=== PATIENT | male | born 1930 | race Caucasian/White ===

== ENCOUNTER 2016-08-24 18:16 | Emergency (ER) | payer MEDICARE, OTHER ==
[~2016-08-24] VITALS: Ht 172.7 cm; Wt 63.5 kg
--- NOTE | 2016-08-24 18:19 | Emergency Room Report ---
History of Present Illness General Chief Complaint: Dyspnea/Respdistress Source: Patient, EMS Present Illness HPI Patient is a 81-year-old male who presented after having increased difficulty breathing. Patient had been sent in after chest x-ray was performed which showed a small pneumothorax. The patient presented for further evaluation and treatment. The patient had some difficulty breathing. Patient had a nonproductive cough. Patient for having had no recent surgical procedures.Patient denies any shortness of breath. Allergies: Coded Allergies: No Known Allergies (Unverified , 08/24/16) Patient History Past Medical History: see triage record Reviewed Nursing Documentation: PMH: Agreed, PSxH: Agreed Review of Systems All Other Systems: limited - by mental status and poor historian Physical Exam Vital Signs Date Time Temp Pulse Resp B/P Pulse Ox O2 Delivery O2 Flow Rate FiO2 08/24/16 18:10 97.2 89 20 156/64 94 Room Air Sp02 EP Interpretation: reviewed, normal General Appearance: normal inspection, well appearing, no apparent distress, alert, GCS 15, Chronically Ill Head: atraumatic ENT: normal ENT inspection, hearing grossly normal, normal voice, uvula midline Neck: normal inspection, full range of motion, supple, no bony tend, other - trachea midline Respiratory: normal inspection, lungs clear, no respiratory distress, no retraction, no wheezing Cardiovascular #1: regular rate, rhythm, no edema Gastrointestinal: normal inspection, normal bowel sounds, non tender, soft, no guarding, no hernia Genitourinary: no CVA tenderness Musculoskeletal: normal inspection, back normal, normal range of motion Neurologic: normal inspection, alert, oriented x3, responsive, community leader III-XII nml as tested, speech normal Psychiatric: normal inspection, judgement/insight normal, mood/affect normal Skin: normal inspection, normal color, no rash Medical Decision Making Diagnostic Impression: Primary Impression: COPD (chronic obstructive pulmonary disease) Additional Impression: Atelectasis ER Course Patient presented for shortness of breath. Differential included but was not limited to anemia, pneumonia, pneumothorax, myocardial infarction, pericardial effusion, congestive heart failure, acidosis. Because of complexity of patient' s case laboratory testing and imaging studies were ordered.X-ray imaging read by radiology showed equivocal changes for possible pneumothorax. CT of the chest without contrast was ordered at to definitively rule out pneumothorax. Patient was noted to have bibasilar atelectasis. Patient was given Rocephin. The patient was discharged a halfway facility.Patient is given Keflex prescription. Labs Test 08/24/16 18:30 White Blood Count 13.2 K/UL (4.8-10.8) Red Blood Count 4.25 M/UL (4.70-6.10) Hemoglobin 12.7 G/DL (14.2-18.0) Hematocrit 38.1 % (42.0-52.0) Mean Corpuscular Volume 90 FL (80-99) Mean Corpuscular Hemoglobin 29.8 PG (27.0-31.0) Mean Corpuscular Hemoglobin Concent 33.2 G/DL (32.0-36.0) Red Cell Distribution Width 13.1 % (11.6-14.8) Platelet Count 69 K/UL (150-450) Mean Platelet Volume 10.9 FL (6.5-10.1) Neutrophils (%) (Auto) % (45.0-75.0) Lymphocytes (%) (Auto) % (20.0-45.0) Monocytes (%) (Auto) % (1.0-10.0) Eosinophils (%) (Auto) % (0.0-3.0) Basophils (%) (Auto) % (0.0-2.0) Differential Total Cells Counted 100 Neutrophils % (Manual) 76 % (45-75) Lymphocytes % (Manual) 15 % (20-45) Monocytes % (Manual) 9 % (1-10) Eosinophils % (Manual) 0 % (0-3) Basophils % (Manual) 0 % (0-2) Band Neutrophils 0 % (0-8) Platelet Estimate Decreased Platelet Morphology Normal Red Blood Cell Morphology Normal Prothrombin Time 10.9 SEC (9.30-11.50) Prothromb Time International Ratio 1.1 (0.9-1.1) Activated Partial Thromboplast Time 32 SEC (23-33) Last Vital Signs Date Time Temp Pulse Resp B/P Pulse Ox O2 Delivery O2 Flow Rate FiO2 08/24/16 18:10 97.2 89 20 156/64 94 Room Air Status: improved Disposition: XFER SNF Condition: Stable Scripts Cephalexin* (KEFLEX*) 500 Mg Capsule 500 MG ORAL Q6H, #28 CAP 0 Refills Prov: Juan Meza 08/24/16 Juan Meza Aug 24, 2016 18:19
[2016-08-24 18:21] VITALS: BP 156/64
[2016-08-24] MEDS ORDERED: XARELTO10 MG ORAL (18:24)
[2016-08-24] MEDS ORDERED: COLACE100 MG ORAL (18:24)
[2016-08-24] MEDS ORDERED: ATIVAN0.5 MG ORAL (18:24)
[2016-08-24] MEDS ORDERED: FLOMAX0.4 MG ORAL (18:24)
[2016-08-24] MEDS ORDERED: ACETAMINOPHEN325 M1 ORAL (18:24)
[2016-08-24] MEDS ORDERED: ASPIR-LOW81 MG ORAL (18:24)
[2016-08-24] MEDS ORDERED: MILK OF MA2400 MG/10 ORAL (18:24)
[2016-08-24] MEDS ORDERED: ZYPREXA2.5 MG ORAL (18:25)
[2016-08-24 18:52] LABS: MEAN CORPUSCULAR HEMOGLOBIN 29.8 PG (27.0-31.0); MEAN CORPUSCULAR HGB CONC 33.2 G/DL (32.0-36.0); MEAN CORPUSCULAR VOLUME 90 FL (80-99); MEAN PLATELET VOLUME 10.9 FL (6.5-10.1); PLATELET COUNT 69 K/UL (150-450); RED BLOOD COUNT 4.25 M/UL (4.70-6.10); RED CELL DISTRIBUTION WIDTH 13.1 % (11.6-14.8); WHITE BLOOD COUNT 13.2 K/UL (4.8-10.8)
[2016-08-24 19:00] VITALS: BP 118/71
[2016-08-24 19:08] LABS: INR 1.1 (0.9-1.1); PROTHROMBIN TIME 10.9 SEC (9.30-11.50)
[2016-08-24 19:24] LABS: BAND NEUTROPHILS % (MANUAL) 0 % (0-8); BASOPHILS % (MANUAL) 0 % (0-2); EOSINOPHILS % (MANUAL) 0 % (0-3); LYMPHOCYTES % (MANUAL) 15 % (20-45); NEUTROPHILS % (MANUAL) 76 % (45-75); PLATELET ESTIMATE DECREASED; PLATELET MORPHOLOGY NORMAL; TOTAL CELLS COUNTED 100
[2016-08-24 20:04] LABS: TROPONIN I < 0.30 ng/mL (<=0.30)
[2016-08-24 20:08] LABS: ALANINE AMINOTRANSFERASE 8 U/L (3-41); ALBUMIN/GLOBULIN RATIO 0.9 (1.0-2.7); ANION GAP 16 (5-15); ASPARTATE AMINO TRANSFERASE 10 U/L (5-40); CALCIUM 8.9 mg/dL (8.6-10.2); CARBON DIOXIDE 24 mEQ/L (20-30); CHLORIDE 105 mEQ/L (98-107); CREATININE 0.9 mg/dL (0.7-1.2); HEMOLYSIS 5; POTASSIUM 3.6 mEQ/L (3.4-4.9); SODIUM 145 mEQ/L (135-145); TOTAL PROTEIN 6.3 g/dL (6.6-8.7)
[2016-08-24] MEDS ORDERED: cefTRIAXone 1 GM in NS 55 ML IVPB ONE (21:15)
[2016-08-24] MEDS ORDERED: KEFLEX500 MG ORAL (21:32)
[2016-08-24 21:47] VITALS: BP 124/71
[2016-08-24 22:57] VITALS: BP 134/67
[2016-08-25 02:02] VITALS: BP 137/77
[2016-08-25 03:16] VITALS: BP 139/97
[2016-08-25 03:17] VITALS: BP 137/77
--- NOTE | 2016-08-25 10:01 | Diagnostic Imaging Report ---
Indications: Increasing dyspnea, suggestion of left pneumothorax on earlier chest radiograph Technique: Continuous helical CT imaging of the thorax and upper abdomen was performed with automatic exposure control on a Siemens sensation [address] scanner. Axial images were reconstructed at 5 mm slice thickness and interval. Coronal images were reconstructed at 5 mm slice thickness. No IV contrast was administered secondary to requesting physician's order, despite no contraindications listed in either submitted clinical data or tech note.. CTDI volume(s): 15 mGy Total DLP: 541 mGy-cm Findings: Comparison: Chest radiograph performed earlier today No pneumothorax identified. No pleural effusion or other obvious pleural abnormality. Mixed increased interstitial markings bronchial wall thickening, irregular linear and patchy consolidative opacities in the dependent portions of both lungs. Lungs normally, symmetrically inflated. Heart size within normal limits. No pericardial abnormality. No obvious mediastinal or hilar enlarged lymph nodes, other abnormal masses or fluid collections. Scattered arterial mural calcifications. Vascular patency indeterminate. Thoracic aorta nonaneurysmal. Chest wall soft tissues nonfocal. Circumscribed low-attenuation masses emanating exophytically from both renal cortices, incompletely imaged, right 6 cm and left 9 cm, latter with punctate peripheral calcification. Additional nodular calcifications in the visualized portions of left kidney. The stomach demonstrates circumscribed ridging is masslike prominence along/emanating from its greater curvature, 6.5 cm in diameter. This is not further characterizable. Disc margin osteophytes scattered throughout thoracic, lower cervical, upper lumbar spine. No focal skeletal lesions are identified. IMPRESSION: No evidence of pneumothorax or other significant pleural abnormality Pulmonary bibasal mixed interstitial and airspace opacities with bronchial wall thickening, nonspecific, may represent atelectasis, probable pneumonitis, chronic lung disease, or combination. Arteriosclerosis, vascular patency indeterminate Degenerative spondylosis Bilateral renal cortical masses likely cysts Left nephrolithiasis, apparently nonobstructive 6.5 cm masslike prominence of stomach, nonspecific, may represent the lumen of the stomach itself. Neoplasm not excludable. Further evaluation warranted. This finding not described in [facility] preliminary report, minor discrepancy due to questionable nature finding. Discrepancy report sent to ER via PACS, and findings discussed with Dr. Stevens, ER physician, by telephone at time of this dictation This otherwise correlates with [facility] preliminary report.
--- NOTE | 2016-08-25 10:58 | Diagnostic Imaging Report ---
Indications: Shortness of breath Technique: Portable AP chest Findings: Comparison: None Curvilinear density interface overlying upper left hemithorax, lung markings clearly seen peripheral to it. Linear densities left lung base. Right lung, bilateral pleural surfaces clear. Heart size, pulmonary vasculature within normal limits. Thoracic aorta calcified and elongated. Otherwise, no abnormal mediastinal widening. Bilateral glenohumeral joints are narrowed with marginal osteophyte formation. Chronic appearing contour deformity right humeral head.. IMPRESSION: Subsegmental atelectasis left lung base Skin fold overlies upper left hemithorax. This does not represent a pneumothorax, discrepancy with [facility] preliminary report Aortosclerosis and probable chronic hypertensive change Bilateral glenohumeral degenerative arthropathy Chronic contour deformity right may be degenerative and/or posttraumatic in nature.
== END 2016-08-25 03:17 ==
LOC: EDBD 18:16 → EMR 19:20
DX: J44.9 Chronic obstructive pulmonary disease, unspecified (principal); J98.11 Atelectasis
CPT/HCPCS: 36415; 71010; 71250; 80053; 84484; 85007; 85025; 85610; 85730; 96374; 99284; J0696